=== PATIENT | female | born 2000 | race Caucasian/White ===

== ENCOUNTER 2023-04-02 01:27 | Emergency (ER) | payer SELFPAY ==
[2023-04-02 01:32] VITALS: BP 171/99; PULSE 106; RESP 18; TEMP 36; O2SAT 99
--- NOTE | 2023-04-02 01:54 | W.ED.GENAD ---
HPI General Mode of arrival: ambulatory. Date/Time Provider Initiated Documentation: 04/02/23 01:30. Limitations to Documentation: no limitations. Information obtained by: patient. HPI Narrative: 22yo female with hx PCOS presenting for left sided perineal pain x 2 weeks. Thinks she had an ingrown hair at the start of symptoms, since then has noted increased pain and a swollen area that is very tender. No drainage. No unusual vaginal discharge. No trauma or injury. She is otherwise in her usual state of health with no fevers, chills, rash, nausea, vomiting, abdominal pain, dysuria, hematuria, or other concerns. Related Data Home Medications Medication Instructions Recorded Confirmed bupropion HCl 150 mg 24 hr tablet, 150 mg PO QAM #30 tabs 11/16/22 04/02/23 extended release (Wellbutrin XL) buspirone 5 mg tablet 5 mg PO BID #60 tabs 11/16/22 04/02/23 clonidine HCl 0.1 mg tablet 0.1 mg PO QHS PRN anxiety, sleep 11/16/22 04/02/23 #30 tabs fluticasone propionate 50 2 spray intranasal DAILY #16 grams 11/16/22 04/02/23 mcg/actuation nasal spray,suspension (Flonase Allergy Relief) levocetirizine 5 mg tablet (Xyzal) 5 mg PO DAILY #90 tabs 11/16/22 04/02/23 Previous Rx's Medication Instructions Recorded bupropion HCl 150 mg 24 hr tablet, 150 mg PO QAM #30 tabs 11/16/22 extended release (Wellbutrin XL) buspirone 5 mg tablet 5 mg PO BID #60 tabs 11/16/22 clonidine HCl 0.1 mg tablet 0.1 mg PO QHS PRN anxiety, sleep 11/16/22 #30 tabs fluticasone propionate 50 2 spray intranasal DAILY #16 grams 11/16/22 mcg/actuation nasal spray,suspension (Flonase Allergy Relief) levocetirizine 5 mg tablet (Xyzal) 5 mg PO DAILY #90 tabs 11/16/22 Allergies Allergy/AdvReac Type Severity Reaction Status Date / Time niacin AdvReac Intermediate vomits Verified 04/02/23 01:36 trazodone AdvReac Intermediate nausea and Verified 04/02/23 01:36 dizziness enviromental Allergy Intermediate seasonal - Uncoded 04/02/23 01:36 hayfever General Stated 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 Head: Normocephalic, atraumatic Neck: Trachea midline, ?Neck supple. Cardiac: ?RRR, no murmurs appreciated Resp: No respiratory distress. CTAB. : ?Normal external genitalia. ~1.5cm spherical firm tender area on left perinum posterior to vulva and anterior to anus. Extremities: ?No deformities.? No peripheral edema. Neurologic: GCS 15. ? Moves all extremities freely against gravity Course Vital Signs Vital signs: Vital Signs Temperature 36.0 C L 04/02/23 01:32 Pulse 106 H 04/02/23 01:32 Respiratory Rate 18 04/02/23 01:32 Blood Pressure 171/99 H 04/02/23 01:32 Pulse Oximetry 99 04/02/23 01:32 Temperature 36.0 C L 04/02/23 01:32 Temperature Source Skin 04/02/23 01:32 Pulse 106 H 04/02/23 01:32 Respiratory Rate 18 04/02/23 01:32 Respiratory Effort Normal, Non-Labored 04/02/23 01:38 Blood Pressure 171/99 H 04/02/23 01:32 Blood Pressure Position Sitting 04/02/23 01:32 Pulse Oximetry 99 04/02/23 01:32 Oxygen Delivery Method Room Air 04/02/23 01:32 Oxygen Flow Rate 0 04/02/23 01:32 Pain Level 4 04/02/23 01:39 Procedures Abscess I/D Site: Other (perineal) Side (if applicable): Left Sedation/analgesia: None Local Anesthetic: Lidocaine 2% Amount of anesthesia used (mL): 1 Technique: Incised with #11 Blade Amount of fluid expressed (mL): 2 Irrigation: No Packing used?: None Medical Decision Making 22yo female with hx PCOS presenting for left sided perineal pain x 2 weeks. Thinks she had an ingrown hair at the start of symptoms, increasing pain and swelling since then. Systemically well. Not septic. Hypertensive on arrival. On exam she has an ~1.5cm abscess in the perineal region. Not Bartholin's cyst, not consistent with STI, not kori-anal. Confirmed small drainable fluid pocket present on bedside ultrasound. I&D with ~2cc purulent material expressed. Patient tolerated well. Advised to followup with her PCP regarding her blood pressure. Discharged home; discahrge instructions and return precautions were reviewed with patient who verbalized understanding. All questions were answered and she is in full agreement with the plan. Quality:SDOH Health Related Social Needs: No Data to Display PFSH All Active Problems (Updated 04/02/23 @ 02:19 by Hellen Berrios MD) Abscess (Acute) Right shoulder strain (Acute) Anxiety and depression (Chronic) Morbid obesity (Acute) PCOS (polycystic ovarian syndrome) (Acute) Nexplanon in place (Acute) Hypertriglyceridemia (Acute) Family History Mother Anxiety Asthma Father Diabetes Hypertension Heart failure Paternal Grandmother Cancer lung Social History Smoking/Tobacco Use Status: Current every day Tobacco Type: e-cigarettes Tobacco: How many years used: 5 Smokeless tobacco user: other Quit status: considering quitting Second Hand Exposure: Yes Smoking risk assessment performed?: Yes Alcohol Intake: former Substance use type: does not use Counseling given: No Adopted: No Caregiver/Support person: No Foster care: No Household members: spouse Housing: house Number of Children: 0 Communication Needs: Corrective Lenses Education Level: high school Do you need help understanding health information?: Never 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 [employer] Pets and animals: Yes Pets and animals: other Details: Bunny Sexually active: Yes Do you think of yourself as: straight/heterosexual Current gender identity: female What is your relationship status?: How often do you talk on the phone with friends or family?: three or more times per week How often do you get together with friends or relatives?: three or more times per week Do you belong to any clubs or organized social groups?: no Panel score (0-1 are the most socially isolated patients): 2 NHANES result reviewed/action taken: No What type of physical activity do you participate in: walking and other Details: Kayaghadaind Duration: 30-45 minutes/day Frequency: 1-2 times per week Special shravan needs: No Seatbelt use: always Helmet use: Yes Helmet use: sometimes Drive intox 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 w/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 Working smoke detector in home: Yes Fire extinguisher in home: Yes Carbon monox detector in home: Yes Do you feel safe at home: Yes Do you feel safe in your relationship?: Yes Discharge Plan Disposition Patient Disposition: Home Condition: Good Discharge Details Clinical Impression: Abscess Primary Care Provider: Tigist Vee ED Provider: Hellen Berrios Home Meds and New Rx's Prescriptions: Continued fluticasone propionate [Flonase Allergy Relief] 50 mcg/actuation spray,suspension 2 spray intranasal DAILY Qty: 16 12RF Rx Instructions: administer into each nostril levocetirizine [Xyzal] 5 mg tablet 5 mg PO DAILY Qty: 90 1RF bupropion HCl [Wellbutrin XL] 150 mg tablet extended release 24 hr 150 mg PO QAM Qty: 30 3RF buspirone 5 mg tablet 5 mg PO BID Qty: 60 3RF clonidine HCl 0.1 mg tablet 0.1 mg PO QHS PRN (Reason: anxiety, sleep) Qty: 30 3RF Discharge Instructions Instructions: Abscess (ED) Additional Instructions: You can take tylenol and ibuprofen over the counter as needed for discomfort; follow the directions on the bottle. If your symptoms return or worsen, please seek medical attention either at your primary care office or in the emergency department. Return to the emergency department for new or worsening symptoms including fever, severe pain, or if you have any other concerns. Referrals: Tigist Vee NP [Primary Care Provider] -
[2023-04-02] MEDS: Lidocaine 2% Multi-Dose 50 ML VIAL (02:15)
== END 2023-04-02 02:31 | disposition home or self-care (01) ==
PROVIDERS: Emergency Provider Student in an Organized Health Care Education/Training Program; PCP Nurse Practitioner
DX: L02.91 Cutaneous abscess, unspecified (principal)
CPT/HCPCS: 10060; J2003

== ENCOUNTER 2023-04-20 23:38 | Emergency (ER) | payer SELFPAY ==
[2023-04-20 23:48] VITALS: BP 178/112; PULSE 90; RESP 18; TEMP 36.1; O2SAT 100
[2023-04-20 23:54] VITALS: BP 178/112; PULSE 90; RESP 18; TEMP 36.1; O2SAT 100
--- NOTE | 2023-04-21 00:01 | W.ED.GENAD ---
HPI General Mode of arrival: ambulatory. Date/Time Provider Initiated Documentation: 04/21/23 00:01. Limitations to Documentation: no limitations. Information obtained by: patient. HPI Narrative: Time seen was 2354 in triage. Patient is a 22-year-old female who presents with 1 week of left ear pain. She has had a history of otitis media as a child and it was recommended that she got myringotomy tubes but never did. She has not had any episodes as an adult. She does not swim frequently and does not have a history of otitis externa. She denies any cold symptoms or URI symptoms. She is complaining of muffled hearing in the left ear. She tells me she has not had her wisdom teeth excised but was told she never developed. She took 800 mg of ibuprofen prior to arrival. She denies any fevers or chills. The pain is constant and radiates down her left jaw. She feels as though it is swollen. She denies any swelling of her throat lips or tongue. No change in the quality of her voice. She denies any other aggravating or alleviating factors. She denies any discharge from her ear. No fever or chills. No other symptoms. Related Data Home Medications Medication Instructions Recorded Confirmed bupropion HCl 150 mg 24 hr tablet, 150 mg PO QAM #30 tabs 11/16/22 04/20/23 extended release (Wellbutrin XL) buspirone 5 mg tablet 5 mg PO BID #60 tabs 11/16/22 04/20/23 clonidine HCl 0.1 mg tablet 0.1 mg PO QHS PRN anxiety, sleep 11/16/22 04/20/23 #30 tabs fluticasone propionate 50 2 spray intranasal DAILY #16 grams 11/16/22 04/20/23 mcg/actuation nasal spray,suspension (Flonase Allergy Relief) levocetirizine 5 mg tablet (Xyzal) 5 mg PO DAILY #90 tabs 11/16/22 04/20/23 amoxicillin 500 mg capsule 500 mg PO TID #20 caps 04/21/23 Previous Rx's Medication Instructions Recorded bupropion HCl 150 mg 24 hr tablet, 150 mg PO QAM #30 tabs 11/16/22 extended release (Wellbutrin XL) buspirone 5 mg tablet 5 mg PO BID #60 tabs 11/16/22 clonidine HCl 0.1 mg tablet 0.1 mg PO QHS PRN anxiety, sleep 11/16/22 #30 tabs fluticasone propionate 50 2 spray intranasal DAILY #16 grams 11/16/22 mcg/actuation nasal spray,suspension (Flonase Allergy Relief) levocetirizine 5 mg tablet (Xyzal) 5 mg PO DAILY #90 tabs 11/16/22 amoxicillin 500 mg capsule 500 mg PO TID #20 caps 04/21/23 Allergies Allergy/AdvReac Type Severity Reaction Status Date / Time niacin AdvReac Intermediate vomits Verified 04/20/23 23:53 trazodone AdvReac Intermediate nausea and Verified 04/20/23 23:53 dizziness enviromental Allergy Intermediate seasonal - Uncoded 04/20/23 23:53 hayfever General Stated Complaint: EarProblem DREW: 4 Review of Systems Narrative: see hpi Exam Const General: cooperative, healthy appearing, comfortable, no acute distress, well developed, well groomed and well hydrated Nutritional Appearance: average body habitus and well nourished Orientation: alert, awake and oriented x3 HENMT Head: normal to inspection, normocephalic, atraumatic and other (No visible swelling of the face or jaw) Ears: hearing grossly normal bilaterally, external ears normal, mastoids normal, no periauricular adenopathy, TM abnormal (There is a scar on the right TM, the left TM appears red and bulging ) bulging, wth effusion, erythematous, with fluid behind the TM, with loss of landmarks and other (2 small yellow blisters left TM); not perforated and other (L ear canal is erythematous & tender on exam. Both are narrow.) General nose exam: external nose normal, nares normal and no nasal discharge Face and sinus: normal facial exam, sinuses nontender and face symmetric Mouth: oral mucosae normal, lip normal, tongue normal, oropharynx normal, moist mucous membranes and other (Normal phonation. The patient is handling secretions.) Teeth and gingiva: dentition normal and gingiva normal Throat: posterior oropharynx normal and uvula midline Eyes General: appearance normal, both eyes and all related structures Eyelids: eyelids normal Conjunctivae: conjunctivae normal Sclera: sclerae normal Cornea: corneas normal Pupils: PERRL EOM: EOM intact bilaterally and No nystagmus Neck Neck: normal visual inspection, full ROM, no lymphadenopathy, no meningeal signs, trachea midline and supple Lymphatic: no lymphadenopathy noted Chest Chest: normal inspection of the chest Resp Effort & Inspection: normal respiratory effort, able to speak in complete sentences, no audible wheezes, no nasal flaring, no respiratory distress, no retractions, no stridor, not tachypneic, no tracheal deviation, no use of accessory muscles, No prolonged expiratory phase and other (Normal inspiratory to expiratory ratio.) Auscultation: clear to auscultation bilaterally, no rales, no rhonchi and no wheezes Cardio Jugular venous pressure: no JVD Palpation: normal PMI Rate: regular rate Rhythm: regular rhythm Heart Sounds: S1 normal, S2 normal, no gallops, no murmurs and no rubs Skin General skin exam: no rashes or lesions noted, turgor normal, no petechiae, no purpura and other (Skin is normal for ethnicity.) Lesions: no lesions Rashes: no rashes Trauma: no lacerations or abrasions Neuro General: patient alert, patient awake, patient oriented x3, moves all extremities, no meningeal signs, no focal motor deficits and CN's II-XI intact bilaterally Cranial Nerves: CN's II-XI intact bilaterally, PERRL, accommodation normal, EOM intact bilaterally, no nystagmus, facial strength normal, tongue midline, hearing normal and no nystagmus Cognition: normal cognition Speech: speech normal Gait: normal gait Motor: muscle tone normal throughout and strength 5/5 throughout Sensory Exam: no sensory deficits noted Extrem General: normal to inspection, full ROM and capillary refill normal Psych Appearance: grossly normal Affect: normal affect Attitude: cooperative Thought Process: normal Thought Content: normal Insight: insight good Judgment: judgment good Other: The patient appears to have capacity make medical decisions. Course Vital Signs Vital signs: Vital Signs Temperature 36.1 C L 04/20/23 23:48 Pulse 90 04/20/23 23:48 Respiratory Rate 18 04/20/23 23:48 Blood Pressure 178/112 H 04/20/23 23:48 Pulse Oximetry 100 04/20/23 23:48 Temperature 36.1 C L 04/20/23 23:54 Temperature Source Skin 04/20/23 23:54 Pulse 90 04/20/23 23:54 Respiratory Rate 18 04/20/23 23:54 Respiratory Effort Normal, Non-Labored 04/20/23 23:53 Blood Pressure 178/112 H 04/20/23 23:54 Blood Pressure Position Sitting 04/20/23 23:54 Pulse Oximetry 100 04/20/23 23:54 Oxygen Delivery Method Room Air 04/20/23 23:54 Oxygen Flow Rate 0 04/20/23 23:48 Pain Level 8 04/20/23 23:54 Medical Decision Making This is a 22-year-old female in good health who presents with 1 week history of left ear pain. She has a normal-appearing dental exam and the left TM is red and bulging but does not appear perforated. I do not think she has mastoiditis or dental infection. My plan is to discharge her with amoxicillin 500 mg every 8 hours for 7 days. I have advised her to take a probiotic while on amoxicillin. I will give her a home pack of hydrocodone. I have advised her not to drink alcohol, drive, make important decisions or operate heavy machinery while taking this medication. She is aware it is habit-forming and can cause drowsiness and constipation. I have advised her to take a probiotic. I will order viscous lidocaine and Cipro Floxin eardrops as well. I have advised her if she develops discharge from the ear she should not put any drops in the ear or submerging underwater. She voiced understanding and agreement with the discharge plan. Quality:SDOH Health Related Social Needs: No Data to Display PFSH All Active Problems Otitis externa (Acute) Otitis media (Acute) Abscess (Acute) Right shoulder strain (Acute) Anxiety and depression (Chronic) Morbid obesity (Acute) PCOS (polycystic ovarian syndrome) (Acute) Nexplanon in place (Acute) Hypertriglyceridemia (Acute) Family History Mother Anxiety Asthma Father Diabetes Hypertension Heart failure Paternal Grandmother Cancer lung Social History Smoking/Tobacco Use Status: Never Tobacco: How many years used: 5 Smokeless tobacco user: other Quit status: considering quitting Second Hand Exposure: Yes Smoking risk assessment performed?: Yes Alcohol Intake: former Substance use type: does not use Counseling given: No Adopted: No Caregiver/Support person: No Foster care: No Household members: spouse Housing: house Number of Children: 0 Communication Needs: Corrective Lenses Education Level: high school Do you need help understanding health information?: Never 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[employer] Pets and animals: Yes Pets and animals: other Details: Bunny Sexually active: Yes Do you think of yourself as: straight/heterosexual Current gender identity: female What is your relationship status?: How often do you talk on the phone with friends or family?: three or more times per week How often do you get together with friends or relatives?: three or more times per week Do you belong to any clubs or organized social groups?: no Panel score (0-1 are the most socially isolated patients): 2 NHANES result reviewed/action taken: No What type of physical activity do you participate in: walking and other Details: [place] Duration: 30-45 minutes/day Frequency: 1-2 times per week Special shravan needs: No Seatbelt use: always Helmet use: Yes Helmet use: sometimes 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 Working smoke detector in home: Yes Fire extinguisher in home: Yes Carbon monox detector in home: Yes Do you feel safe at home: Yes Do you feel safe in your relationship?: Yes Discharge Plan Disposition Patient Disposition: Home Condition: Improving Discharge Details Clinical Impression: Otitis media, Otitis externa Primary Care Provider: Tigist Vee ED Provider: Mayda Morales Home Meds and New Rx's Prescriptions: New amoxicillin 500 mg capsule 500 mg PO TID Qty: 20 0RF No Action fluticasone propionate [Flonase Allergy Relief] 50 mcg/actuation spray,suspension 2 spray intranasal DAILY Qty: 16 12RF Rx Instructions: administer into each nostril levocetirizine [Xyzal] 5 mg tablet 5 mg PO DAILY Qty: 90 1RF bupropion HCl [Wellbutrin XL] 150 mg tablet extended release 24 hr 150 mg PO QAM Qty: 30 3RF buspirone 5 mg tablet 5 mg PO BID Qty: 60 3RF clonidine HCl 0.1 mg tablet 0.1 mg PO QHS PRN (Reason: anxiety, sleep) Qty: 30 3RF Discharge Instructions Instructions: Otitis Externa (ED), Ear Infection (ED) Additional Instructions: 1. Start amoxicillin 500 mg every 8 hours for 7 days. Take a probiotic while on antibiotics. 2. Alternate 1000mg of acetaminophen (Tylenol) every 3 hours with 400-600mg of ibuprofen (Motrin/Advil) as needed for pain or fever. Do not take more than 4000mg in 24 hours. Do not take acetaminophen if you have a history of liver disease. Do not take ibuprofen if you have a history of gastrointestinal bleeding or a history of kidney disease. 3. Use the eardrops, 3 drops twice a day for 7 to 10 days. 4. Use the lidocaine drops as needed for pain. 5. Do not use any drops if you have discharge from the ear which could mean you have a perforated eardrum and should avoid getting any fluid in the ear if it is perforated. 6. Call your primary care provider in the morning for follow-up appointment and return here for any new or worrisome symptoms. Discharge Data Discharge Physician: Mayda Morales
[2023-04-21] MEDS: Acetaminophen 500 MG TAB 1000 MG PO (00:34)
[2023-04-21] MEDS: Amoxicillin 500 MG CAP PO (00:34)
== END 2023-04-21 00:36 | disposition home or self-care (01) ==
PROVIDERS: Emergency Provider Emergency Medicine Emergency Medical Services; PCP Nurse Practitioner
DX: H92.02 Otalgia, left ear (principal); H60.92 Unspecified otitis externa, left ear; H66.92 Otitis media, unspecified, left ear
CPT/HCPCS: 99283

== ENCOUNTER 2023-12-31 22:03 | Emergency (ER) | payer SELFPAY ==
[2023-12-31 22:04] VITALS: BP 151/107; PULSE 96; RESP 18; TEMP 36.1; O2SAT 98
--- NOTE | 2023-12-31 22:07 | W.ED.GENAD ---
Discharge Plan Disposition Patient Disposition: Home Condition: Good Discharge Details Clinical Impression: Dry socket Primary Care Provider: Tigist Vee ED Provider: Goran Talbot Home Meds and New Rx's Prescriptions: No Action No Known Home Meds Discharge Instructions Instructions: Dry Socket Additional Instructions: You were seen for dry socket with no evidence of infection. Socket was packed with iodoform soaked in lidocaine. This will likely fall out but for now we will provide relief. Use the syringe to help keep food particles out of the socket. Clove or clove oil will help for recurrent pain. Follow up with your dentist on Wednesday. Return to ED for fever, swelling, redness, other concerns. HPI General Mode of arrival: ambulatory. Date/Time Provider Initiated Documentation: 12/31/23 22:04. Limitations to Documentation: no limitations. Information obtained by: patient and RN notes reviewed. HPI Narrative: Patient had a left lower molar pulled on Wednesday. Everything seemed to be fine until last night she started to have some discomfort. Over the day it has become much worse. She has been trying to rinse her mouth and keep the socket clean. She thinks this clot has come out. She denies fever. She denies swelling. She called both the on-call primary care physician as well as the dental office. Ultimately referred here. Related Data Home Medications ?Medication ?Instructions ?Recorded ?Confirmed Unknown [No Known Home Meds] 12/31/23 12/31/23 Allergies Allergy/AdvReac Type Severity Reaction Status Date / Time niacin AdvReac Intermediate vomits Verified 12/31/23 22:07 trazodone AdvReac Intermediate nausea and Verified 12/31/23 22:07 dizziness enviromental Allergy Intermediate seasonal - Uncoded 12/31/23 22:07 hayfever General Stated Complaint: DentalOral DREW: 4 Review of Systems Narrative: Per HPI Exam Narrative Exam Narrative: Const: Obese female in NAD. VS per triage. HEENT: NC/AT. Normal facial exam. Left lower 1st molar socket is empty, no clot. There is no redness, swelling or drainage. No gingival abscess. Neck: Supple. Trachea midline. Lungs: Normal respiratory effort. Neuro: A+O x 3. Normal speech, mentation, gait. Cranial nerves II - XII grossly intact. No gross motor or sensory deficit. Course Vital Signs Vital signs: Vital Signs Temperature 97 F L 11/01/24 22:04 Pulse 96 H 12/31/23 22:04 Respiratory Rate 18 12/31/23 22:04 Blood Pressure 151/107 H 12/31/23 22:04 Pulse Oximetry 98 12/31/23 22:04 Temperature 97 F L 12/31/23 22:04 Temperature Source Temporal Artery Scan 12/31/23 22:04 Pulse 96 H 12/31/23 22:04 Respiratory Rate 18 12/31/23 22:04 Blood Pressure 151/107 H 12/31/23 22:04 Blood Pressure Position Sitting 12/31/23 22:04 Pulse Oximetry 98 12/31/23 22:04 Oxygen Delivery Method Room Air 12/31/23 22:04 Oxygen Flow Rate 0 12/31/23 22:04 Pain Level 8 12/31/23 22:04 Medical Decision Making Patient presenting to ED with pain from dry socket status post extraction on Wednesday. No evidence of infection. Unfortunately, we do not have dry socket paste noted we have eugenol. Socket irrigated out of food particles. It was then packed with iodoform packing soaked in 1% lidocaine plain. She will need to follow-up with her dentist on Wednesday. Return precautions provided. 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 Family History Mother Anxiety Asthma Father Diabetes Hypertension Heart failure Paternal Grandmother Cancer lung Social History Smoking/Tobacco Use Status: Never Tobacco: How many years used: 5 Smokeless tobacco user: other Quit status: considering quitting Second Hand Exposure: Yes Smoking risk assessment performed?: Yes Alcohol Intake: former Substance use type: former substance user Date of last use: 2019. 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 [employer] Pets and animals: Yes Pets and animals: other Details: [place] Sexually active: Yes Do you think of yourself as: straight/heterosexual Current gender identity: female What is your relationship status?: How often do you talk on the phone with friends or family?: three or more times per week How often do you get together with friends or relatives?: three or more times per week Do you belong to any clubs or organized social groups?: no Panel score (0-1 are the most socially isolated patients): 2 NHANES result reviewed/action taken: No What type of physical activity do you participate in: walking and other Details: Enriqueta Duration: 30-45 minutes/day Frequency: 1-2 times per week Special shravan needs: No Seatbelt use: always Helmet use: Yes Helmet use: sometimes Drive intox or ride w/intox drivers' cash clerk: No Working smoke detector in home: Yes Fire extinguisher in home: Yes Carbon monox detector in home: Yes Do you feel safe at home: Yes Do you feel safe in your relationship?: Yes
[2023-12-31] MEDS: Lidocaine 1% Pres-Free 5 ML VIAL IJ (22:32)
[2024-11-14 12:15] LABS: Chlamydia Result Negative (Negative); GC Result Negative (Negative)
== END 2023-12-31 22:49 | disposition home or self-care (01) ==
LOC: ER 22:52
PROVIDERS: Emergency Provider Emergency Medicine; PCP Nurse Practitioner
DX: R68.84 Jaw pain (principal); M27.3 Alveolitis of jaws
CPT/HCPCS: 99283; J2003

== ENCOUNTER 2024-04-03 01:35 | Observation (INO) | payer BC, SELFPAY ==
[2024-04-03] VITALS (116 sets, daily range): BP systolic 130–207; BP diastolic 62–143; PULSE 72–107; RESP 11–30; TEMP 36–36.7; O2SAT 92–100
--- NOTE | 2024-04-03 01:30 | RT.EKG_ITS ---
APPROVED REPORT Exam: Resting ECG Reason for Exam: SYNCOPE Patient Location: E HR:89 bpm ECG Measurements Heart Rate [address] 161 P 56 QRSd 102 QRS 79 QT 377 T 25 QTc 460 Conclusion Sinus rhythm...normal P axis, V-rate 60- [address] segment or T wave abnormalities to suggest occlusive AL
--- NOTE | 2024-04-03 02:00 | DI.RAD_ITS ---
Exam(s) XR CHEST 2V PA LATERAL EXAM: XR CHEST 2V PA LATERAL CLINICAL HISTORY: chest pain TECHNIQUE: 2D digital imaging was performed. Two views. COMPARISON: No exams were available for comparison FINDINGS: HEART: Normal size. Aorta: Not dilated. PULMONARY VASCULATURE: Normal. MEDIASTINUM: Unremarkable. LUNGS: Clear. PLEURAL SPACE: No pleural effusion or pneumothorax. BONE:Unremarkable for age. SOFT TISSUES: Unremarkable. IMPRESSION: No acute abnormality. DATA REPOSITORY: RADIATION DOSE DELIVERED:
[2024-04-03 02:20] LABS: BE (Venous) 3 mmol/L (-2-3); HCO3 (Venous) 28 mmol/L (23-28); O2 Sat (Venous) 73 %; TCO2 (Venous) 26 mmol/L (24-29); pCO2 (Venous) 50 mmHg (41-51); pH (Venous) 7.36 (7.31-7.41); pO2 (Venous) 40 mmHg
[2024-04-03 02:21] LABS: Abs Immature Grans 0.07 10^3/uL (0.0-0.06); Absolute Basophil Count 0.06 10^3/uL (0.0-0.2); Absolute Eosinophil Count 0.17 10^3/uL (0.0-0.7); Absolute Monocyte Count 0.71 10^3/uL (0.1-0.8); Absolute Neutrophil Count 5.55 10^3/uL (1.2-6.7); Basophils % 0.6 %; Eosinophils % 1.8 %; HCT 39.2 % (36.0-46.0); HGB 13.3 g/dL (11.2-15.7); Immature Grans % 0.7 %; Lymphocytes % 31.4 %; MCH 29.3 pg (27.0-33.0); MCHC 33.9 % (32.0-36.0); MCV 86 fL (80-95); MPV 9.3 fL (8.0-11.0); Monocytes % 7.4 %; Neutrophils % 58.1 %; Platelet Count 324 10^3/uL (130-400); RBC 4.54 10^6/uL (3.93-5.22); RDW 12.7 % (11.7-14.6); RDW-SD 39.8 fL; WBC 9.56 10^3/uL (4.4-10.8)
[2024-04-03] MEDS: LORazepam 1 MG TAB PO (02:25)
--- NOTE | 2024-04-03 02:33 | W.ED.GENAD ---
Discharge Plan Disposition Patient Disposition: Admit to [facility] Condition: Stable Discharge Details Clinical Impression: Loss of consciousness, Hypertension, Chest pain Admit Date/Time: 04/03/24 04:21 Admit Provider: Mikie Penny Attending Provider: Mikie Penny Primary Care Provider: Tigist Vee ED Provider: Hellen Berrios Discharge Data Discharge Date/Time-TO BE ENTERED AT DEPARTURE: 04/03/24 04:23 HPI General Mode of arrival: ambulatory. Date/Time Provider Initiated Documentation: 04/03/24 01:36. Limitations to Documentation: no limitations. Information obtained by: patient. HPI Narrative: 23yo F with hx of anxiety, obesity, HLD, presenting for syncopal event. This evening shortly after midnight she came to on the floor between her kitchen and living room; does not remember what happened or how she got there. The last thing she recalls is getting up to the bathroom and checking her blood pressure (SBP ~200) around 1130. She does remember anything in between these two events. When she regained consciousness she felt normal aside from not being able to remember what happened. Has never had anything similar happen before. No headache, neck pain, nausea, vomiting, numbness, weakness, or urinary incontinence. She had intermittent dull chest pain and shortness of breath that has been coming and going for several weeks; is currently present. Pain is substernal, nonradiating, with no alleviating or aggravating factors. She also feels a little lightheaded currently. Has also felt occasional 'fluttering' in her chest for the past couple weeks. Reports that she was on cholesterol medicaton from ages [age] but not currently. Father had his first heart attack at age 30, subsequently had a another heart attack and now his severe heart failure at age 52. No family history of seizures. No family history of congenital heart disease or sudden unexpected at a young age. Smokes marrijunna rarely, denies any other recreational drug use. Otherwise in her usual state of health [facility] no fevers, chills, rash, abdominal pain, extremity pain, or other concerns. Related Data Home Medications ?Medication ?Instructions ?Recorded ?Confirmed clonidine HCl 0.1 mg tablet 0.1 mg PO DAILY PRN 04/03/24 04/03/24 Allergies Allergy/AdvReac Type Severity Reaction Status Date / Time niacin AdvReac Intermediate vomits Verified 04/03/24 01:43 trazodone AdvReac Intermediate nausea and Verified 04/03/24 01:43 dizziness enviromental Allergy Intermediate seasonal - Uncoded 04/03/24 01:43 hayfever General Stated Complaint: Dizzy/Sync DREW: 3 Review of Systems Narrative: see HPI Exam Narrative Exam Narrative: GENERAL: Alert, anxious. SKIN: Warm and well perfused. HEAD: Atraumatic, normocephalic without edema, discoloration or evidence of trauma. Facial bones without deformities or tenderness. EYES: PERRL. No scleral icterus or conjunctival injection. Extraocular muscles intact without nystagmus or diplopia. EARS:No hemotympanum. MOUTH: No malocclusion or trismus. Moist mucus membranes without blood. NECK: Trachea midline. No discolorations or edema. Full pain free ROM with flexion, extension, and lateral rotation. CV: Regular rate and rhythm, Normal s1 and s2. No murmurs, rubs, or gallops. PV: Radial pulses 2+ bilaterally and symmetric. 2+ capillary refill. No extremity edema. CHEST: Chest symmetric with respirations. Mild anterior left chest wall tenderness. Lungs are clear to auscultation bilaterally. ABDOMEN: Soft, nondistended, nontender. BACK: No abrasions, skin openings, or ecchymosis. Spine without bony tenderness, no step offs. PELVIC: Pelvis stable, nontender to lateral compression MSK: No gross deformities . Tolerates full range of motion of extremities without tenderness. NEURO: ? GCS 15.? PERRL.? EOMI.? Fluent speech, no dysarthria. Motor- 5/5 strength symmetric bilateral upper and lower extremities Sensation- ?Intact to light touch and symmetric multiple dermatomes including upper and lower extremities Coordination- No dysmetria on finger to nose Gait/station: ?Normal stance.? No truncal ataxia. Steady gait with equal normal steps CRANIAL NERVES: II: Pupils equal and reactive, III, IV, : EOM intact, no gaze preference or deviation, no nystagmus. V: normal sensation in V1, V2, and V3 segments bilaterally VII: no asymmetry, no nasolabial fold flattening VIII: normal hearing to speech IX, X: normal palatal elevation, no uvular deviation XI: 5/5 head turn and 5/5 shoulder shrug bilaterally XII: midline tongue protrusion Course Vital Signs Vital signs: Vital Signs Temperature 36.2 C L 04/03/24 01:38 Pulse 103 H 04/03/24 01:38 Respiratory Rate 18 04/03/24 01:38 Blood Pressure 207/131 H 04/03/24 01:38 Pulse Oximetry 100 04/03/24 01:38 Temperature 36.2 C L 04/03/24 01:38 Temperature Source Temporal Artery Scan 04/03/24 01:38 Pulse 103 H 04/03/24 01:38 Respiratory Rate 18 04/03/24 01:44 Respiratory Effort Normal, Non-Labored 04/03/24 01:44 Respiratory Depth Normal 04/03/24 01:44 Respiratory Pattern Normal 04/03/24 01:44 Blood Pressure 207/131 H 04/03/24 01:38 Blood Pressure Position Sitting 04/03/24 01:38 Pulse Oximetry 100 04/03/24 01:38 Oxygen Delivery Method Room Air 04/03/24 01:38 Oxygen Flow Rate 0 04/03/24 01:38 Pain Level 6 04/03/24 01:38 Lab/Test Results Lab/Test Results: Laboratory Tests Range/Units 04/03/24 01:58 WBC (4.4-10.8) 10^3/uL 9.56 RBC (3.93-5.22) 10^6/uL 4.54 Hgb (11.2-15.7) g/dL 13.3 Hct (36.0-46.0) % 39.2 MCV (80-95) fL 86 MCH (27.0-33.0) pg 29.3 MCHC (32.0-36.0) % 33.9 RDW (11.7-14.6) % 12.7 Plt Count (130-400) 10^3/uL 324 MPV (8.0-11.0) fL 9.3 Immature Gran % % 0.7 Neutrophils % % 58.1 Lymphocytes % % 31.4 Monocytes % % 7.4 Eosinophils % % 1.8 Basophils % % 0.6 Nucleated RBC % (0.0-0.3) % 0.0 Absolute Neutrophils (1.2-6.7) 10^3/uL 5.55 Absolute Lymphocytes (1.2-3.4) 10^3/uL 3.00 Absolute Monocytes (0.1-0.8) 10^3/uL 0.71 Absolute Eosinophils (0.0-0.7) 10^3/uL 0.17 Absolute Basophils (0.0-0.2) 10^3/uL 0.06 VBG pH (7.31-7.41) 7.36 VBG pCO2 (41-51) mmHg 50 VBG pO2 mmHg 40 VBG HCO3 (23-28) mmol/L 28 VBG Total CO2 (24-29) mmol/L 26 VBG O2 Saturation % 73 VBG Base Excess (-2-3) mmol/L 3 Medical Decision Making 23yo F with hx of anxiety, obesity, HLD, presenting for syncopal event, chest pain, and hypertension. Does not recall what happened, just waking up on the floor. Significant cardiac risk factors including father with CA at age 30, BMI 48, and reported HLD. Hypertensive on arrival 200's/130's and borderline tachycardia. No significant traumatic findings on exam, lungs CTAB, appears well perfused, overall well appearing albeit anxious. Takes clonidine at home occasionally for anxiety; will give 1mg PO ativan here and see if this improves BP while awaiting results of workup. Most concerned for cardiogenic syncope; seizure less likely. Nexus head and c-spine negative; would not get CT imaging. -EKG SR, appropriate intervals, no ST segment or T wave abnormalities to suggest occlusive CA. -CXR independently reviewed; no focal pneumonia or pneumothorax on my view, agree with radiology read below. -Labs reviewed as below, CBC reassuring with no leukocytosis or anemia, CMP with no actionable abnormalities, Mg slightly low at 1.6 (oral replacement ordered), VBG reassuring, initial troponin <4 with one hour repeat of 5, BNP not suggestive of heart failure, dimer negative (would not further pursue PE or dissection with CT imaging), negative. On reassessment BP improved to 150's/70's. Continues to report intermittent dull chest pain. No significant events on telemetry. Given unclear etiology of syncopal event and her underlying personal and family risk factors, warrants observation stay on telemetry for further workup. Discussed with [facility] hospitalist Dr. Penny; pt accepted to medicine service. Awaiting admission orders and transfer to the floor when bed available. Imaging Data Radiologic Study: Imaging: X-Ray Radiologist's impression: IMPRESSION: No acute findings Lab Data Lab results reviewed: Yes I reviewed the patient's lab results. Labs: Laboratory Tests Range/Units 04/03/24 04/03/24 01:58 03:05 WBC (4.4-10.8) 10^3/uL 9.56 RBC (3.93-5.22) 10^6/uL 4.54 Hgb (11.2-15.7) g/dL 13.3 Hct (36.0-46.0) % 39.2 MCV (80-95) fL 86 MCH (27.0-33.0) pg 29.3 MCHC (32.0-36.0) % 33.9 RDW (11.7-14.6) % 12.7 Plt Count (130-400) 10^3/uL 324 MPV (8.0-11.0) fL 9.3 Immature Gran % % 0.7 Neutrophils % % 58.1 Lymphocytes % % 31.4 Monocytes % % 7.4 Eosinophils % % 1.8 Basophils % % 0.6 Nucleated RBC % (0.0-0.3) % 0.0 Absolute Neutrophils (1.2-6.7) 10^3/uL 5.55 Absolute Lymphocytes (1.2-3.4) 10^3/uL 3.00 Absolute Monocytes (0.1-0.8) 10^3/uL 0.71 Absolute Eosinophils (0.0-0.7) 10^3/uL 0.17 Absolute Basophils (0.0-0.2) 10^3/uL 0.06 D-Dimer (<500) ng/mlFEU 133 VBG pH (7.31-7.41) 7.36 VBG pCO2 (41-51) mmHg 50 VBG pO2 mmHg 40 VBG HCO3 (23-28) mmol/L 28 VBG Total CO2 (24-29) mmol/L 26 VBG O2 Saturation % 73 VBG Base Excess (-2-3) mmol/L 3 Sodium (136-145) mmol/L 140 Potassium (3.5-5.1) mmol/L 3.8 Chloride (98-107) mmol/L 101 Carbon Dioxide (21.0-32.0) mmol/L 30.3 Anion Gap (3-11) mmol/L 8.7 BUN (7-18) mg/dL 12 Creatinine (0.55-1.02) mg/dL 0.8 Est GFR (CKD-EPI 2020) (mL/min/1.73m2) 104.80 Glucose (74-106) mg/dL 136 H Calcium (8.5-10.1) mg/dL 9.1 Magnesium (1.8-2.4) mg/dL 1.6 L Total Bilirubin (0.2-1.0) mg/dL 0.51 AST (15-37) U/L 22 ALT (14-59) U/L 51 Alkaline Phosphatase (46-116) U/L 69 Troponin I (<or=51) ng/L < 4 5 NT-Pro-B Natriuret Pep (<300) pg/mL 51 Total Protein (6.4-8.2) g/dL 7.8 Albumin (3.4-5.0) g/dL 4.3 Serum HCG, Qual Negative Quality:SDOH Health Related Social Needs: No Data to Display PFSH All Active Problems (Updated 04/03/24 @ 04:22 by ALBAN BRAMBILA) Syncope and collapse (Acute) Chest pain (Acute) Hypertension (Chronic) Loss of consciousness (Acute) Medical History Anxiety and depression Morbid obesity Hypertriglyceridemia PCOS (polycystic ovarian syndrome) 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 Family History Mother Anxiety Asthma Father Diabetes Hypertension Heart failure Paternal Grandmother Cancer lung Social History Smoking/Tobacco Use Status: Never Tobacco: How many years used: 5 Smokeless tobacco user: other Quit status: considering quitting Second Hand Exposure: Yes Smoking risk assessment performed?: Yes Alcohol Intake: former Substance use type: former substance user Date of last use: 2019. 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[employer] Pets and animals: Yes Pets and animals: other Details: [place] Sexually active: Yes Do you think of yourself as: straight/heterosexual Current gender identity: female What is your relationship status?: How often do you talk on the phone with friends or family?: three or more times per week How often do you get together with friends or relatives?: three or more times per week Do you belong to any clubs or organized social groups?: no Panel score (0-1 are the most socially isolated patients): 2 NHANES result reviewed/action taken: No What type of physical activity do you participate in: walking and other Details: [place] Duration: 30-45 minutes/day Frequency: 1-2 times per week Special shravan needs: No Seatbelt use: always Helmet use: Yes Helmet use: sometimes Drive intox or ride w/intox dump truck driver: No Working smoke detector in home: Yes Fire extinguisher in home: Yes Carbon monox detector in home: Yes Do you feel safe at home: Yes Do you feel safe in your relationship?: Yes
[2024-04-03 02:36] LABS: HCG Qual (Serum) Negative
[2024-04-03 02:49] LABS: Albumin 4.3 g/dL (3.4-5.0); Alkaline Phosphatase 69 U/L (46-116); Anion Gap 8.7 mmol/L (3-11); BUN 12 mg/dL (7-18); Bilirubin, Total 0.51 mg/dL (0.2-1.0); CO2 30.3 mmol/L (21.0-32.0); CREATININE 0.8 mg/dL (0.55-1.02); Calcium 9.1 mg/dL (8.5-10.1); Chloride 101 mmol/L (98-107); Glucose 136 mg/dL (74-106); Magnesium 1.6 mg/dL (1.8-2.4); NT-proBNP 51 pg/mL (<300); Potassium 3.8 mmol/L (3.5-5.1); Sodium 140 mmol/L (136-145); Total Protein 7.8 g/dL (6.4-8.2)
[2024-04-03 02:55] LABS: D-Dimer 133 ng/mlFEU (<500)
--- NOTE | 2024-04-03 03:00 | DI.VRAD_ITS ---
PROCEDURE INFORMATION: Exam: XR Chest Exam date and time: 04/03/2024 2:44 AM Age: 23 years old Clinical indication: Other: Chest pain TECHNIQUE: Imaging protocol: Radiologic exam of the chest. Views: 2 views. COMPARISON: No relevant prior studies available. FINDINGS: Lungs: Unremarkable. No consolidation. Pleural spaces: Unremarkable. No pleural effusion. No pneumothorax. Heart/Mediastinum: Unremarkable. No cardiomegaly. Bones/joints: Unremarkable. IMPRESSION: No acute findings. Dictated and Authenticated by: Ghulam Lugo MD. Orderin Agustina Macedo MD
[2024-04-03 03:01] LABS: Troponin I < 4 ng/L (<or=51)
[2024-04-03 03:02] LABS: ALT 51 U/L (14-59); AST 22 U/L (15-37)
[2024-04-03 03:25] LABS: Troponin I 5 ng/L (<or=51)
[2024-04-03] MEDS: Magnesium Gluconate 500 MG TAB 1000 MG PO (03:47)
--- NOTE | 2024-04-03 03:59 | HPE_ITS ---
Date of service: 04/03/24 Time of Service: 03:59 Assessment and Plan Assessment and plan (1) Syncope and collapse: Start date: 04/03/24 Status: Acute Assessment and plan: This is a 23-year-old lady who recently had upper respiratory symptoms with negative viral screening, taking NyQuil which she usually does take for cold but having high blood pressure measurements at home and recent symptoms of retrosternal chest pressure or pain which was not associate with any activity and had a syncopal episode at home after attempting to sleep and after having gone to the bathroom just prior to her episode. She did not feel dizzy after urinating. She is on no medical therapy that he has been on statins in the past. She does have a strong family history of heart disease with her father having a heart attack in his 30s. She had no known injury with her fall and imaging was negative for intracranial and cervical injury. She had no signs or symptoms of this being a seizure. She has had no history of seizures. She has used polysubstance does have a history of vaping and polysubstance abuse in the past but of illicit drugs for at least 4 years. She does live with her . Because of her unknown cause of syncope, she will be observed with further evaluation of her heart with echocardiogram and trending troponins as well as monitoring her heart rhythm. If all of these are unrevealing, she could be discharged for further evaluation of her cardiac status with cardiac stress testing and will be initiated on treatment of her hypertension as well as loaded with aspirin and given Lipitor high-dose until further evaluation. Fasting lipids will be performed. Patient is a full code. (2) Atypical chest pain: Start date: 04/03/24 Status: Acute Assessment and plan: Patient is initiated on loading dose of aspirin with daily baby aspirin, we will trend troponins which have been negative and cardiac monitoring with Zio patch at discharge. Long-term she needs further cardiology evaluation including exercise stress test with family history of early heart disease. She was initiated on metoprolol for her blood pressure and elevation of heart rate as well as high-dose statin until further evaluation. Fasting lipids as mentioned. (3) Hypomagnesemia: Start date: 04/03/24 Status: Acute Assessment and plan: IV repletion and monitor closely. Patient may want to take oral magnesium at home. (4) Hypertension: Status: Chronic Assessment and plan: Initiate metoprolol and titrate to blood pressure. Caution with patient's syncopal episode being unknown as to cause with further cardiac evaluation before discharge on metoprolol. (5) Morbid obesity: Assessment and plan: Weight loss was advised. Prognosis poor for change with patient having chronic obesity. (6) Substance abuse: Assessment and plan: Urine drug screen but the patient denied recent illicit use and off Suboxone. If positive this may be contributing to her presenting symptoms. History of Present Illness History of Present Illness Chief Complaint: Syncopal episode at home unwitnessed and without injury. Narrative: This is a 23-year-old female patient who has been on simvastatin in the past for hyperlipidemia when she was in her early teens who recently has been having some mild chest discomfort retrosternally not necessarily associate with exertion and not radiating. She was checking her blood pressure because of her chest discomfort and noted that it was elevated the day of presentation. Just before midnight the day of presentation the patient went to the bathroom and felt funny checking her blood pressure again in bed and this was high. She told her that she needed to be checked out at the ED and he remained asleep. She did attempt to get up and awakened on her living room floor without memory of falling or having a syncopal episode. She had no incontinence of urine or stool and did not bite her tongue. She was fully aware of her surroundings when she awakened. She drove herself to the ED for evaluation and was found to be hypertensive which did wax and wane without treatment initially. D-dimer was negative and CTA of the chest was not performed with patient not being hypoxic and having no history of thromboembolic events or peripheral edema. She is morbidly obese. She remains hypertensive with heart rate above 80 but not tachycardic. She is not having chest discomfort and CT of the head and neck revealed no injuries. Chest x-ray was also clear. Because of her family history would be a very strong of heart attacks at a early age with her father had a heart attack at the age of 30 and now with severe ischemic cardiomyopathy, she was evaluated with serial troponins which thus far have been negative and observation of her heart rhythm with her recent symptoms of atypical chest pain and possible dysrhythmia. Her TSH was normal. She did previously have polysubstance abuse but has been clean for 4 years having been in [facility] for drug charges and Suboxone up to the spring 2019. Urine drug screen was ordered but pending. She did not have any viral screening with RSV, flu and COVID being negative but she has had mild cough and upper respiratory symptoms recently. She did take DayQuil and NyQuil which she usually does for cold symptoms. Patient will be observed with echocardiogram to be performed in the morning and follow-up on troponins with cardiac monitoring. If imaging and testing is unrevealing, she should have a Zio patch at discharge and follow-up with her PCP with consideration of further cardiac evaluation and cardiac stress testing. Because her blood pressure remains elevated she will be initiated on metoprolol will be observed 25 mg every 6 hours, loaded with aspirin and given baby aspirin daily along with Lipitor 80 mg been initiated. She is a full code. Review of Systems Narrative: 13 point review of systems otherwise unrevealing or stable. Patient has had no peripheral edema or weight gain being morbidly obese. She does remain active. Patient does vape tobacco. PFSH All Active Problems (Updated 04/03/24 @ 06:28 by Mikie Penny) Atypical chest pain (Acute) Hypomagnesemia (Acute) Syncope and collapse (Acute) Chest pain (Acute) Hypertension (Chronic) Loss of consciousness (Acute) Medical History Anxiety and depression Morbid obesity Hypertriglyceridemia PCOS (polycystic ovarian syndrome) 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 Family History Mother Anxiety Asthma Father Diabetes Hypertension Heart failure Paternal Grandmother Cancer lung Social History (Updated 04/03/24 @ 06:41 by Mikie Penny) Smoking/Tobacco Use Status: Current every day Tobacco Type: e-cigarettes Tobacco: How many years used: 5 Smokeless tobacco user: other Quit status: considering quitting Second Hand Exposure: Yes Smoking risk assessment performed?: Yes Alcohol Intake: former Substance use type: former substance user Date of last use: 2019. 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: three or more times per week Do you belong to any clubs or organized social groups?: no Panel score (0-1 are the most socially isolated patients): 2 NHANES result reviewed/action taken: No What type of physical activity do you participate in: walking and other Details: [place] Duration: 30-45 minutes/day Frequency: 1-2 times per week Special shravan needs: No Seatbelt use: always Helmet use: Yes Helmet use: sometimes Drive intox or ride w/intox 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 Working smoke detector in home: Yes Fire extinguisher in home: Yes Carbon monox detector in home: Yes Do you feel safe at home: Yes Do you feel safe in your relationship?: Yes Meds Allergies and Home Medications Allergies Allergy/AdvReac Type Severity Reaction Status Date / Time niacin AdvReac Intermediate vomits Verified 04/03/24 01:43 trazodone AdvReac Intermediate nausea and Verified 04/03/24 01:43 dizziness enviromental Allergy Intermediate seasonal - Uncoded 04/03/24 01:43 hayfever Home Medications ?Medication ?Instructions ?Recorded ?Confirmed ?Type clonidine HCl 0.1 mg tablet 0.1 mg PO DAILY PRN 04/03/24 04/03/24 History Exam Narrative Exam Narrative: General: Patient appears appropriate age, morbidly obese, alert and oriented x 3 and in no acute distress. HEENT: Normocephalic, eyes with pupils equal and react to light symmetrically, extraocular movement intact and sclera anicteric. Oropharynx with moist mucosa. Fair dentition. Neck: Supple without JVD. Back: Normal posture, no CVA tenderness. Lungs: Bronchovesicular breath sounds diffusely with no focalizing rales or rhonchi. Fair aeration. No expiratory wheeze. Normal inspiratory to expiratory phase ratio. Breast: Exam deferred. Abdomen: Obese contour, soft and nontender to palpation with no palpable hepatosplenomegaly. No guarding or rebound. Bowel sounds positive in all quadrants. Genitalia/rectal: Exam deferred. Extremities without clubbing, cyanosis or pitting edema. Extremities are obese with some nonpitting edema present. Negative Homans' sign bilaterally. Normal peripheral pulses. Skin: Normal color, warm and dry. Neuro: Cranial nerves II through XII gross intact, no focalized motor deficits. No tremor. DTRs physiologic and symmetrical. Psych: Normal mood and affect. No abnormal thought processes. Remote and recent memory intact. Results Imaging Imaging Studies: Exam: CT Head Without Contrast Exam date and time: 04/03/2024 4:29 AM Age: 23 years old Clinical indication: Syncope and collapse; Other: Syncope, hypertension; Prior surgery; Surgery date: 6+ months; Surgery type: Tonsillectomy COMPARISON: No relevant prior studies available. FINDINGS: Brain: No brain edema. No intracranial hemorrhage. Cerebral ventricles: No ventriculomegaly. Paranasal sinuses: See Bones finding. Mastoid air cells: Unremarkable. Bones: Right ethmoid and right maxillary sinusitis Impression. Soft tissues: Unremarkable. IMPRESSION: No acute brain findings. PROCEDURE INFORMATION: Exam: CT Cervical Spine Without Contrast Exam date and time: 04/03/2024 4:29 AM Age: 23 years old Clinical indication: Syncope and collapse; Other: Syncope, hypertension; Prior surgery; Surgery date: 6+ months; Surgery type: Tonsillectomy COMPARISON: CR XR CHEST 2V PA LATERAL 04/03/2024 2:44 AM FINDINGS: Bones: No acute fracture. Normal alignment. No significant disc bulge or herniation. No severe spinal canal stenosis. No significant neural foraminal narrowing. Lungs: Lung apices are normal. Soft tissues: Unremarkable. IMPRESSION: No acute findings. Exam: XR Chest Exam date and time: 04/03/2024 2:44 AM Age: 23 years old Clinical indication: Other: Chest pain TECHNIQUE: Imaging protocol: Radiologic exam of the chest. Views: 2 views. COMPARISON: No relevant prior studies available. FINDINGS: Lungs: Unremarkable. No consolidation. Pleural spaces: Unremarkable. No pleural effusion. No pneumothorax. Heart/Mediastinum: Unremarkable. No cardiomegaly. Bones/joints: Unremarkable. IMPRESSION: No acute findings. Labs 04/03/24 06:08 04/03/24 01:58 Labs: Laboratory Results - last 24 hr 04/03/24 04/03/24 01:58 03:05 WBC 9.56 RBC 4.54 Hgb 13.3 Hct 39.2 MCV 86 MCH 29.3 MCHC 33.9 RDW 12.7 Plt Count 324 MPV 9.3 Immature Gran % 0.7 Neutrophils % 58.1 Lymphocytes % 31.4 Monocytes % 7.4 Eosinophils % 1.8 Basophils % 0.6 Nucleated RBC % 0.0 Absolute Neutrophils 5.55 Absolute Lymphocytes 3.00 Absolute Monocytes 0.71 Absolute Eosinophils 0.17 Absolute Basophils 0.06 D-Dimer 133 VBG pH 7.36 VBG pCO2 50 VBG pO2 40 VBG HCO3 28 VBG Total CO2 26 VBG O2 Saturation 73 VBG Base Excess 3 Sodium 140 Potassium 3.8 Chloride 101 Carbon Dioxide 30.3 Anion Gap 8.7 BUN 12 Creatinine 0.8 Est GFR (CKD-EPI 2020) 104.80 Glucose 136 H Calcium 9.1 Magnesium 1.6 L Total Bilirubin 0.51 AST 22 ALT 51 Alkaline Phosphatase 69 Troponin I < 4 5 NT-Pro-B Natriuret Pep 51 Total Protein 7.8 Albumin 4.3 Serum HCG, Qual Negative Last Vital Signs Temp 36.2 C L 04/03/24 01:38 Pulse 95 H 04/03/24 03:45 Resp 18 04/03/24 03:45 BP 148/88 H 04/03/24 03:30 Pulse Ox 97 04/03/24 03:45 Time Spent Time spent with Patient: >75 minutes Time was spent: preparing to see the patient(eg.review tests), obtaining and/or reviewing separately otained hiistory, ordering medications,tests, procedures, indepentently interpreting results, counseling the patient and care coordination
--- NOTE | 2024-04-03 04:00 | DI.CT_ITS ---
Exam(s) CT HEAD NECK WO EXAM: CT HEAD NECK WO CLINICAL HISTORY: Syncope, hypertension. TECHNIQUE: Imaging Protocol: Axial computed tomography images with coronal and sagittal reformatted images were created and reviewed COMPARISON: No exams were available for comparison FINDINGS: CT Head: Ventricles and Extra axial spaces: Normal in size and morphology for the patient's age. Hemorrhage: None. Cerebral parenchyma: Unremarkable for age. Midline shift: None. Brainstem/Cerebellum: For age. Calvarium: Normal. Visualized Paranasal sinuses/Mastoids: Opacification of several ethmoid sinuses as well as right maxi llary sinus. Soft Tissues: Unremarkable. CT Cervical Spine: Bones: No acute fracture or subluxation. Soft Tissues: Unremarkable. Lung Apices: Clear. IMPRESSION: 1. No acute intracranial process. 2. No acute fracture or subluxation in the cervical spine. RADIATION DOSE DELIVERED: 1,283.14mGy.cm Total DLP DATA REPOSITORY: All CT scans at this facility are submitted to the National Radiology Data Registry (NRDR) Dose Index Registry (DIR) with the [employer] ([employer]). RADIATION OPTIMIZATION: All CT scans at this facility use at least one of these dose optimization te chniques: automated exposure control; mA and/or kV adjustment per patient size (includes targeted exa ms where dose is matched to clinical indication); or iterative reconstruction.
[2024-04-03] MEDS: MAGNESIUM SULFATE 2 GM/50 ML BAG IV_INF (04:51)
[2024-04-03] MEDS: Heparin 5,000 UNITS/ML VIAL 5000 UNITS SC ×3 (04:51→20:10)
--- NOTE | 2024-04-03 04:51 | DI.VRAD_ITS ---
PROCEDURE INFORMATION: Exam: CT Head Without Contrast Exam date and time: 04/03/2024 4:29 AM Age: 23 years old Clinical indication: Syncope and collapse; Other: Syncope, hypertension; Prior surgery; Surgery date: 6+ months; Surgery type: Tonsillectomy TECHNIQUE: Imaging protocol: Computed tomography of the head without contrast. Radiation optimization: All CT scans at this facility use at least one of these dose optimization techniques: automated exposure control; mA and/or kV adjustment per patient size (includes targeted exams where dose is matched to clinical indication); or iterative reconstruction. COMPARISON: No relevant prior studies available. FINDINGS: Brain: No brain edema. No intracranial hemorrhage. Cerebral ventricles: No ventriculomegaly. Paranasal sinuses: See Bones finding. Mastoid air cells: Unremarkable. Bones: Right ethmoid and right maxillary sinusitis Impression. Soft tissues: Unremarkable. IMPRESSION: No acute brain findings. PROCEDURE INFORMATION: Exam: CT Cervical Spine Without Contrast Exam date and time: 04/03/2024 4:29 AM Age: 23 years old Clinical indication: Syncope and collapse; Other: Syncope, hypertension; Prior surgery; Surgery date: 6+ months; Surgery type: Tonsillectomy TECHNIQUE: Imaging protocol: Computed tomography of the cervical spine without contrast. Radiation optimization: All CT scans at this facility use at least one of these dose optimization techniques: automated exposure control; mA and/or kV adjustment per patient size (includes targeted exams where dose is matched to clinical indication); or iterative reconstruction. COMPARISON: CR XR CHEST 2V PA LATERAL 04/03/2024 2:44 AM FINDINGS: Bones: No acute fracture. Normal alignment. No significant disc bulge or herniation. No severe spinal canal stenosis. No significant neural foraminal narrowing. Lungs: Lung apices are normal. Soft tissues: Unremarkable. IMPRESSION: No acute findings. Dictated and Authenticated by: Ghulam Lugo MD. Orderin Hemalatha Deluna MD
[2024-04-03 05:22] LABS: COVID-19 PCR Negative (Negative); Influenza A PCR Negative (Negative); Influenza B PCR Negative (Negative); RSV PCR Negative (Negative)
[2024-04-03 05:24] LABS: Source Nasopharynx
[2024-04-03 06:18] LABS: HCT 36.4 % (36.0-46.0); HGB 12.5 g/dL (11.2-15.7); MCH 29.3 pg (27.0-33.0); MCHC 34.3 % (32.0-36.0); MCV 85 fL (80-95); MPV 9.5 fL (8.0-11.0); Platelet Count 331 10^3/uL (130-400); RBC 4.27 10^6/uL (3.93-5.22); RDW 12.7 % (11.7-14.6); RDW-SD 38.9 fL; WBC 9.47 10^3/uL (4.4-10.8)
[2024-04-03 06:35] LABS: ALT 45 U/L (14-59); AST 20 U/L (15-37); Albumin 4.1 g/dL (3.4-5.0); Alkaline Phosphatase 63 U/L (46-116); Anion Gap 7.2 mmol/L (3-11); BUN 11 mg/dL (7-18); Bilirubin, Total 0.53 mg/dL (0.2-1.0); CO2 28.8 mmol/L (21.0-32.0); CREATININE 0.7 mg/dL (0.55-1.02); Chloride 103 mmol/L (98-107); Estimated GFR 123.01 (mL/min/1.73m2); Glucose 123 mg/dL (74-106); Magnesium 2.2 mg/dL (1.8-2.4); Potassium 3.9 mmol/L (3.5-5.1); Sodium 139 mmol/L (136-145); Total Protein 7.4 g/dL (6.4-8.2)
[2024-04-03] MEDS: Metoprolol 25 MG TAB PO ×4 (06:53→20:09)
[2024-04-03] MEDS: Atorvastatin 40 MG TAB 80 MG PO ×2 (06:53→20:09)
[2024-04-03] MEDS: Aspirin 325 MG TAB PO (06:53)
[2024-04-03 07:10] LABS: Calculated LDL 35 mg/dL (<100); Cholesterol 137 mg/dL (<200); HDL Cholesterol 31 mg/dL (40-60); Triglyceride 358 mg/dL (<150)
[2024-04-03 07:54] LABS: Troponin I 7 ng/L (<or=51)
[2024-04-03 10:05] LABS: *AMPHETAMINES SCREEN URINE Negative (Negative); *BARBITURATES SCREEN URINE Negative (Negative); *BENZODIAZEPINES SCREEN URINE Negative (Negative); Cannabinoids THC Negative (Negative); Cocaine Screen,Urine Negative (Negative); METHADONE URINE SCREEN Negative (Negative); OPIATES URINE SCREEN Negative (Negative)
[2024-04-03 10:07] LABS: Tricyclic Antidepressants Negative (Negative)
--- NOTE | 2024-04-03 16:04 | W.PC.ACHO ---
Registration Status: Primary Language: Preferred Language: ED Information & Data Chief Complaint Dizzy/Sync 04/03/24 02:36 Other Complaint Chest Pain 04/03/24 01:38 Triage Note pt reports that 4 days ago 04/03/24 01:38 she was at work and BP was 178/135, took clonidine and Bp increased. Occurred several times over the last few days. Took it earlier this evening it was 208/145. then does not recall what happened but woke up on the kitchen floor. Unsure how long she was down for, unsure if head strike. having chest pains, SOB, feels dizzy. Denies N/V. Took nyquil at 10pm. Dad had heart attack at 30 and is in heart failure at 52. Medical / Surgical History (Last Reviewed 04/03/24 @ 04:00 by Mikie Penny) Anxiety and depression Morbid obesity Hypertriglyceridemia PCOS (polycystic ovarian syndrome) Substance abuse Most Recent Vital Signs Temperature 36.2 C L 04/03/24 01:38 Temperature Source Temporal Artery Scan 04/03/24 01:38 Pulse 83 04/03/24 16:00 Pulse 83 04/03/24 16:00 Respiratory Rate 20 04/03/24 16:00 Respiratory Effort Normal, Non-Labored 04/03/24 01:44 Respiratory Depth Normal 04/03/24 01:44 Respiratory Pattern Normal 04/03/24 01:44 Blood Pressure 155/96 H 04/03/24 16:00 Blood Pressure Mean 109 04/03/24 16:00 Blood Pressure Position Sitting 04/03/24 01:38 Pulse Oximetry 95 04/03/24 16:00 Oxygen Delivery Method Room Air 04/03/24 01:38 Oxygen Flow Rate 0 04/03/24 01:38 Pain Level 6 04/03/24 01:38 Allergies niacin Adverse Reaction (Intermediate, Verified 04/03/24 01:43) vomits trazodone Adverse Reaction (Intermediate, Verified 04/03/24 01:43) nausea and dizziness enviromental Allergy (Intermediate, Uncoded 04/03/24 01:43) seasonal - hayfever Precautions Isolation Standard precaution 04/03/24 01:44 Active Medications Generic Name Dose Route Start Last Admin Trade Name Freq PRN Reason Stop Dose Admin Heparin Sodium (Porcine) 5,000 units 04/03/24 04:15 04/03/24 12:16 Heparin 5,000 Units/Ml Vial SC 5,000 units Q8H DOMINICK Administration Metoprolol Tartrate 25 mg 04/03/24 12:00 04/03/24 12:16 Metoprolol 25 Mg Tab PO 25 mg Q6H DOMINICK Administration IV IV Catheter Type [Left Saline Lock Antecubital] IV Catheter Gauge [Left 20 Antecubital] Diagnostics 04/03/24 04/03/24 04/03/24 Range/Units 09:38 07:09 06:08 WBC 9.47 (4.4-10.8) 10^3/uL RBC 4.27 (3.93-5.22) 10^6/uL Hgb 12.5 (11.2-15.7) g/dL Hct 36.4 (36.0-46.0) % MCV 85 (80-95) fL MCH 29.3 (27.0-33.0) pg MCHC 34.3 (32.0-36.0) % RDW 12.7 (11.7-14.6) % Plt Count 331 (130-400) 10^3/uL MPV 9.5 (8.0-11.0) fL Immature Gran % % Neutrophils % % Lymphocytes % % Monocytes % % Eosinophils % % Basophils % % Nucleated RBC % (0.0-0.3) % Absolute Neutrophils (1.2-6.7) 10^3/uL Absolute Lymphocytes (1.2-3.4) 10^3/uL Absolute Monocytes (0.1-0.8) 10^3/uL Absolute Eosinophils (0.0-0.7) 10^3/uL Absolute Basophils (0.0-0.2) 10^3/uL D-Dimer (<500) ng/mlFEU VBG pH (7.31-7.41) VBG pCO2 (41-51) mmHg VBG pO2 mmHg VBG HCO3 (23-28) mmol/L VBG Total CO2 (24-29) mmol/L VBG O2 Saturation % VBG Base Excess (-2-3) mmol/L Sodium 139 (136-145) mmol/L Potassium 3.9 (3.5-5.1) mmol/L Chloride 103 (98-107) mmol/L Carbon Dioxide 28.8 (21.0-32.0) mmol/L Anion Gap 7.2 (3-11) mmol/L BUN 11 (7-18) mg/dL Creatinine 0.7 (0.55-1.02) mg/dL Est GFR (CKD-EPI 2020) 123.01 (mL/min/1.73m2) Glucose 123 H (74-106) mg/dL Calcium 9.0 (8.5-10.1) mg/dL Magnesium 2.2 (1.8-2.4) mg/dL Total Bilirubin 0.53 (0.2-1.0) mg/dL AST 20 (15-37) U/L ALT 45 (14-59) U/L Alkaline Phosphatase 63 (46-116) U/L Troponin I 7 (<or=51) ng/L NT-Pro-B Natriuret Pep (<300) pg/mL Total Protein 7.4 (6.4-8.2) g/dL Albumin 4.1 (3.4-5.0) g/dL Triglycerides 358 H (<150) mg/dL Total Cholesterol 137 (<200) mg/dL LDL Cholesterol, Calc 35 (<100) mg/dL HDL Cholesterol 31 L (40-60) mg/dL Serum HCG, Qual Urine Opiates Screen Negative (Negative) Urine Methadone Screen Negative (Negative) Ur Barbiturates Screen Negative (Negative) Ur Tricyclics Screen Negative (Negative) Ur Amphetamines Screen Negative (Negative) U Benzodiazepines Scrn Negative (Negative) Urine Cocaine Screen Negative (Negative) Ur THC Screen Negative (Negative) COVID-19 Source SARS-CoV-2 (PCR) (Negative) Influenza Type A (PCR) (Negative) Influenza Type B (PCR) (Negative) RSV (PCR) (Negative) 04/03/24 04/03/24 04/03/24 Range/Units 04:40 03:05 01:58 WBC 9.56 (4.4-10.8) 10^3/uL RBC 4.54 (3.93-5.22) 10^6/uL Hgb 13.3 (11.2-15.7) g/dL Hct 39.2 (36.0-46.0) % MCV 86 (80-95) fL MCH 29.3 (27.0-33.0) pg MCHC 33.9 (32.0-36.0) % RDW 12.7 (11.7-14.6) % Plt Count 324 (130-400) 10^3/uL MPV 9.3 (8.0-11.0) fL Immature Gran % 0.7 % Neutrophils % 58.1 % Lymphocytes % 31.4 % Monocytes % 7.4 % Eosinophils % 1.8 % Basophils % 0.6 % Nucleated RBC % 0.0 (0.0-0.3) % Absolute Neutrophils 5.55 (1.2-6.7) 10^3/uL Absolute Lymphocytes 3.00 (1.2-3.4) 10^3/uL Absolute Monocytes 0.71 (0.1-0.8) 10^3/uL Absolute Eosinophils 0.17 (0.0-0.7) 10^3/uL Absolute Basophils 0.06 (0.0-0.2) 10^3/uL D-Dimer 133 (<500) ng/mlFEU VBG pH 7.36 (7.31-7.41) VBG pCO2 50 (41-51) mmHg VBG pO2 40 mmHg VBG HCO3 28 (23-28) mmol/L VBG Total CO2 26 (24-29) mmol/L VBG O2 Saturation 73 % VBG Base Excess 3 (-2-3) mmol/L Sodium 140 (136-145) mmol/L Potassium 3.8 (3.5-5.1) mmol/L Chloride 101 (98-107) mmol/L Carbon Dioxide 30.3 (21.0-32.0) mmol/L Anion Gap 8.7 (3-11) mmol/L BUN 12 (7-18) mg/dL Creatinine 0.8 (0.55-1.02) mg/dL Est GFR (CKD-EPI 2020) 104.80 (mL/min/1.73m2) Glucose 136 H (74-106) mg/dL Calcium 9.1 (8.5-10.1) mg/dL Magnesium 1.6 L (1.8-2.4) mg/dL Total Bilirubin 0.51 (0.2-1.0) mg/dL AST 22 (15-37) U/L ALT 51 (14-59) U/L Alkaline Phosphatase 69 (46-116) U/L Troponin I 5 < 4 (<or=51) ng/L NT-Pro-B Natriuret Pep 51 (<300) pg/mL Total Protein 7.8 (6.4-8.2) g/dL Albumin 4.3 (3.4-5.0) g/dL Triglycerides (<150) mg/dL Total Cholesterol (<200) mg/dL LDL Cholesterol, Calc (<100) mg/dL HDL Cholesterol (40-60) mg/dL Serum HCG, Qual Negative Urine Opiates Screen (Negative) Urine Methadone Screen (Negative) Ur Barbiturates Screen (Negative) Ur Tricyclics Screen (Negative) Ur Amphetamines Screen (Negative) U Benzodiazepines Scrn (Negative) Urine Cocaine Screen (Negative) Ur THC Screen (Negative) COVID-19 Source Nasopharynx SARS-CoV-2 (PCR) Negative (Negative) Influenza Type A (PCR) Negative (Negative) Influenza Type B (PCR) Negative (Negative) RSV (PCR) Negative (Negative) Intake and Output - 24 Hour Total 04/03/24 01:35 thru 04/03/24 06:48 Intake Total 50 Balance 50 Weight 136.078 kg Intake: IV 50 Falls Risk Assessment History of Falls No History 04/03/24 01:44 Contributing Factors Unstable 04/03/24 01:44 Ambulatory Aids Independent 04/03/24 01:44 Tubes/Lines With any additional score 04/03/24 01:44 Gait Evaluation No gait disturbance 04/03/24 01:44 Cognition No cognitive impairment 04/03/24 01:44 Fall Total Score 23 04/03/24 01:44 Level of Risk Standard/Low Risk 04/03/24 01:44 Problems (Last Reviewed 04/03/24 @ 04:00 by Mikie Penny) Atypical chest pain (Acute) Hypomagnesemia (Acute) Syncope and collapse (Acute) Chest pain (Acute) Hypertension (Chronic) Loss of consciousness (Acute) v v v v v v v v v Sending and/or Receiving Nurses: Please use comment section below to note any information pertinent to the patient hand-off not included above. Information / Comments: A&O x4, independent, rings correctly, continent of B&B, able to make needs known, no known skin issues, 18G LAC, HTN x4 days, while increasing over the last couple of days, here for HTN management, family hx of MD on paternal side w/ heart failure. Awoke on kitchen floor unknown LOC time, unknown if patient hit head or not, Report received from: Miladys Oliver RN in ER at 1600
--- NOTE | 2024-04-03 16:37 | PDOC.CMIN ---
Date of service: 04/03/24 Time of Service: 16:37 Care Management Initial Assmt Initial Assessment Reason for Hospitalization: high BP, syncope Functional Status/Living Situation Patient Presentation: Kacie was lying in bed when CM met with her. She stated that she is not feeling well. She reported that she lives in [place] with her , Fadi, and their two cats. 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, and that she will need a return to work letter upon discharge. She is independent at baseline, and does not anticipate the need for additional services upon discharge. CM will continue to follow. Town of Residence: [place] Resides with: Spouse Natural Supports: , Fadi Employment Status: Employed Instrumental Activities of Daily Living (ADLs): Independent Medications Medication Management: No Issues/Barriers identified Advance Directives Advance Directives: Do you have an Advance Directive: N 11/16/22 13:37 AD On File at [facility]: N 11/16/22 13:37 Date Asked 04/03/24 04/03/24 01:59 AD Date Reviewed COLST On File at [facility] No 12/31/23 22:46 COLST Date Scanned Code Status Resuscitation Status Full Code Insurance Coverage/Financial Issues Insurance: / Care Team Visit Care Team Role Provider Type Tigist Vee NP Primary Care Provider NURSE PRACTITIONER Hellen Berrios MD Emergency Provider [facility] STAFF PHYSICIAN Mikie Penny Admit Provider NON-[facility] STAFF PHYSICIAN Attending Provider Discharge Potential Discharge Needs: PCP F/U Appt Anticipated Barriers to Discharge: None Identified Patient/Family Education Needs: Review discharge instructions, discuss Ask Me Three Transportation: Private vehicle Plan: Anticipate Kacie will return home once medically cleared. Her will drive her home via private vehicle when ready. She will follow up with her PCP and discharge plan of care. CM will continue to follow. Social Determinants of Health Screening Social Determinants of Health last assessed: 04/03/24 Will the Patient Participate in the Screening?: Yes Do you worry about having a steady place to live?: no Problems where you live: no known problems In the past 12 months, have you had to go without electric, gas, oil or water in your home?: no Have you or anyone in your house had to go without enough food to eat?: no Has lack of transportation kept you from medical appointments or from doing things needed for daily living?: no Has anyone in your life made you feel unsafe or unsupported?: no How hard is it for you to pay for the very basics like food, housing, medical care, and heating? Would you say it is:: Not hard at all Do you want help finding or keeping work or a job?: I do not need or want help If for any reason you need help with day-to-day activities such as bathing, preparing meals, shopping, managing finances, etc., do you get the help you need?: I don?t need any help How often do you feel lonely or isolated from those around you?: Never Do you speak a language other than [place] at home?: Yes Does the patient want assistance with any of the above?: No Health Related Social Needs Health related social needs: education (Z55.6) PFSH All Active Problems (Updated 04/03/24 @ 06:28 by Mikie Penny) Atypical chest pain (Acute) Hypomagnesemia (Acute) Syncope and collapse (Acute) Chest pain (Acute) Hypertension (Chronic) Loss of consciousness (Acute) Medical History Anxiety and depression Morbid obesity Hypertriglyceridemia PCOS (polycystic ovarian syndrome) 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 Family History Mother Anxiety Asthma Father Diabetes Hypertension Heart failure Paternal Grandmother Cancer lung Social History (Updated 04/03/24 @ 06:41 by Mikie Penny) Smoking/Tobacco Use Status: Current every day Tobacco Type: e-cigarettes Tobacco: How many years used: 5 Smokeless tobacco user: other Quit status: considering quitting Second Hand Exposure: Yes Smoking risk assessment performed?: Yes Alcohol Intake: former Substance use type: former substance user Date of last use: 2019. 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 [employer] Pets and animals: Yes Pets and animals: other Details: Aric Sexually active: Yes Do you think of yourself as: straight/heterosexual Current gender identity: female What is your relationship status?: How often do you talk on the phone with friends or family?: three or more times per week How often do you get together with friends or relatives?: three or more times per week Do you belong to any clubs or organized social groups?: no Panel score (0-1 are the most socially isolated patients): 2 NHANES result reviewed/action taken: No What type of physical activity do you participate in: walking and other Details: Enriqueta Duration: 30-45 minutes/day Frequency: 1-2 times per week Special shravan needs: No Seatbelt use: always Helmet use: Yes Helmet use: sometimes Drive 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
[2024-04-03] MEDS: Normal Saline Flush 10 ML SYR IVP ×2 (16:39→21:03)
[2024-04-03] MEDS: Acetaminophen 325 MG TAB PO (18:51)
[2024-04-04] MEDS: Heparin 5,000 UNITS/ML VIAL 5000 UNITS SC (03:35)
[2024-04-04 03:37] VITALS: BP 157/105; PULSE 98; RESP 17; TEMP 36.8; O2SAT 96
[2024-04-04] MEDS: Ibuprofen 600 MG TAB PO (03:40)
[2024-04-04] MEDS: Acetaminophen 325 MG TAB PO (06:41)
[2024-04-04 07:13] LABS: HGB 12.3 g/dL (11.2-15.7); MCH 28.1 pg (27.0-33.0); MCHC 32.4 % (32.0-36.0); MCV 87 fL (80-95); MPV 9.4 fL (8.0-11.0); Platelet Count 281 10^3/uL (130-400); RBC 4.37 10^6/uL (3.93-5.22); RDW 12.7 % (11.7-14.6); RDW-SD 40.3 fL; WBC 8.01 10^3/uL (4.4-10.8)
[2024-04-04 07:31] VITALS: BP 147/87; PULSE 85; RESP 16; TEMP 36.1; O2SAT 94
[2024-04-04 07:34] LABS: ALT 49 U/L (14-59); AST 27 U/L (15-37); Alkaline Phosphatase 56 U/L (46-116); Anion Gap 5.7 mmol/L (3-11); BUN 12 mg/dL (7-18); CO2 30.3 mmol/L (21.0-32.0); CREATININE 0.7 mg/dL (0.55-1.02); Calcium 8.9 mg/dL (8.5-10.1); Chloride 104 mmol/L (98-107); Estimated GFR 123.01 (mL/min/1.73m2); Glucose 113 mg/dL (74-106); Magnesium 1.6 mg/dL (1.8-2.4); Potassium 4.3 mmol/L (3.5-5.1); Sodium 140 mmol/L (136-145); Total Protein 7.3 g/dL (6.4-8.2)
[2024-04-04] MEDS: Normal Saline Flush 10 ML SYR IVP (07:54)
[2024-04-04] MEDS: Metoprolol 25 MG TAB PO (07:54)
--- NOTE | 2024-04-04 10:03 | DSE_ITS ---
Date of service: 04/04/24 Time of Service: 10:03 DS: Diagnosis Discharge Diagnosis (1) Syncope and collapse: Status: Resolved (2) Atypical chest pain: Status: Resolved (3) Hypomagnesemia: Status: Resolved (4) Hypertension: Status: Chronic (5) Morbid obesity: (6) Substance abuse: Discharge Plan Disposition Patient Disposition: Home Condition: Good Discharge Details Reason For Visit: Syncope, Atypical Chest Pain Admit Date/Time: 04/03/24 04:21 Admit Provider: Mikie Penny Attending Provider: Mikie Penny Primary Care Provider: Tigist Vee Hospital Course Hospital Course: Patient presented with signs and symptoms of a syncopal episode that may be secondary to hypertension. Her blood pressures were over 200 systolic but improved after initiation of metoprolol. Blood pressure is now improved with systolics in the 140s and 25 mg p.o. metoprolol twice daily. Additionally, she was found to have elevated cholesterol panel and was started on high-dose statin. Prolonged discussion was held with the patient regarding dietary changes she understands she needs to significantly cut back on her salt intake, intake of red meat, and overall caloric intake. Otherwise, given that the patient is significant proven of her blood pressures, did not have any acute findings on echocardiogram, or findings on telemetry was determined that she was stable for discharge home. Home Meds and New Rx's Prescriptions: New atorvastatin 40 mg Tablet 80 mg PO QPM Qty: 120 0RF metoprolol tartrate 25 mg Tablet 25 mg PO BID Qty: 120 0RF Continued clonidine HCl 0.1 mg tablet 0.1 mg PO DAILY PRN Patient Comments: TAKE 1 TABLET BY MOUTH EVERY DAY AT BEDTIME NEEDED FOR ANXIETY OR SLEEP Discharge Instructions Instructions: Syncope (fainting) Stand Alone Forms: Nursing Discharge Form Referrals: Tigist Vee NP [Primary Care Provider] - 04/17/24 11:45 am Activity:: Activity as Tolerated Equipment/Supplies:: No Equipment Needed Diet:: As Tolerated Discharge Orders Discharge Orders: Discharge Order (Routine); Ordered 04/04/24 Ordered By: Galileo Boyd Discharge Data Discharge Date/Time-TO BE ENTERED AT DEPARTURE: 04/04/24 10:55 DS: Summary Time Spent with Patient providing and/or coordinating discharge services: Greater than 30 minutes Status at Discharge Functional status at discharge: independent ambulation Overall status at discharge: patient is back to baseline Mental Status: mental status grossly normal Speech and Movement: speech and movement normal Mood: congruent mood Affect: normal affect Quality:SDOH Health Related Social Needs: Health related social needs education (Z55.6) Exam Narrative Exam Narrative: Well-appearing young female sitting up in chair no acute distress, no x 4, heart regular rhythm, auscultation bilaterally, abdomen soft, nontender, nondistended Psych Mental Status: mental status grossly normal Speech and Movement: speech and movement normal Mood: congruent mood Affect: normal affect DS: Data Vitals/I&O Vitals and I&O: Vital Signs Temperature 97.0 F L 04/04/24 07:31 Temperature Source Temporal Artery Scan 04/04/24 07:31 Pulse 85 04/04/24 07:31 Pulse Rhythm Regular 04/03/24 16:27 Pulse 83 04/03/24 16:00 Respiratory Rate 16 04/04/24 07:31 Respiratory Effort Normal 04/03/24 16:27 Respiratory Depth Normal 04/03/24 16:27 Respiratory Pattern Normal 04/03/24 16:27 Blood Pressure 147/87 H 04/04/24 07:31 Blood Pressure Mean 109 04/03/24 16:00 Blood Pressure Position Sitting 04/03/24 01:38 Pulse Oximetry 94 04/04/24 07:31 Oxygen Delivery Method Room Air 04/04/24 07:31 Oxygen Flow Rate 0 04/04/24 07:31 Pain Level 0 04/04/24 07:31 Intake & Output 04/03/24 04/04/24 04/04/24 17:59 05:59 17:59 Intake Total 50 / 50 810 / 860 Balance 50 / 50 810 / 860 Weight 300 lb 0.01 oz 281 lb 15.539 oz Intake: IV 50 / 50 10 / 60 Oral 800 / 800 Other: Urine Color Yellow Urine Odor Normal Comment unmeasurable Data Completed and Pending Labs on day of discharge: Labs from last 24 hours 04/04/24 04/03/24 06:31 09:38 WBC 8.01 RBC 4.37 Hgb 12.3 Hct 38.0 MCV 87 MCH 28.1 MCHC 32.4 RDW 12.7 Plt Count 281 MPV 9.4 Sodium 140 Potassium 4.3 Chloride 104 Carbon Dioxide 30.3 Anion Gap 5.7 BUN 12 Creatinine 0.7 Est GFR (CKD-EPI 2020) 123.01 Glucose 113 H Calcium 8.9 Magnesium 1.6 L Total Bilirubin 0.90 AST 27 ALT 49 Alkaline Phosphatase 56 Total Protein 7.3 Albumin 4.0 Urine Opiates Screen Negative Urine Methadone Screen Negative Ur Barbiturates Screen Negative Ur Tricyclics Screen Negative Ur Amphetamines Screen Negative U Benzodiazepines Scrn Negative Urine Cocaine Screen Negative Ur THC Screen Negative PFSH All Active Problems (Updated 04/05/24 @ 00:04 by ALBAN BRAMBILA) Hypertension (Chronic) Medical History (Updated 04/05/24 @ 00:04 by ALBAN BRAMBILA) H/O echocardiogram 04/03/24[facility] Anxiety and depression Morbid obesity Hypertriglyceridemia PCOS (polycystic ovarian syndrome) 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 Family History Mother Anxiety Asthma Father Diabetes Hypertension Heart failure Paternal Grandmother Cancer lung Social History (Updated 04/03/24 @ 06:41 by Mikie Penny) Smoking/Tobacco Use Status: Current every day Tobacco Type: e-cigarettes Tobacco: How many years used: 5 Smokeless tobacco user: other Quit status: considering quitting Second Hand Exposure: Yes Smoking risk assessment performed?: Yes Alcohol Intake: former Substance use type: former substance user Date of last use: 2019. 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 [employer] Pets and animals: Yes Pets and animals: other Details: Bunny Sexually active: Yes Do you think of yourself as: straight/heterosexual Current gender identity: female What is your relationship status?: How often do you talk on the phone with friends or family?: three or more times per week How often do you get together with friends or relatives?: three or more times per week Do you belong to any clubs or organized social groups?: no Panel score (0-1 are the most socially isolated patients): 2 NHANES result reviewed/action taken: No What type of physical activity do you participate in: walking and other Details: Enriqueta Duration: 30-45 minutes/day Frequency: 1-2 times per week Special shravan needs: No Seatbelt use: always Helmet use: Yes Helmet use: sometimes Drive intox or ride w/intox 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
--- NOTE | 2024-04-04 10:06 | W.NUTRFU ---
Date of service: 04/04/24 Nutrition Note NOTE: Current BMI consistent with class III obesity. Weight with some down trend over the last 2 years - 131kg to 127kg. Lives in apartment current tobacco use- vape Total protein and albumin wnl yesterday. Recommend A1C lab with elevated glucose over 126 fasting yesterday and +family hx of father, who lives with diabetes.
--- NOTE | 2024-04-04 12:23 | PDOC.CMDIS ---
Date of service: 04/04/24 Time of Service: 12:23 LACE Index Scoring Tool Questions: Length of Stay (in days): 1 Was the patient admitted via the E.D.?: Yes E.D. Visits: 2 Answers: Total Score: 6 Risk of Readmission: Low Risk Care Management Discharge Plan Reason for Hospitalization: hypertension with syncope Discharge Plan: Kacie will return home with no new services. Her will drive her home via private vehicle and she will follow up with her PCP and discharge plan of care. Patient/Family Education Needs: Review discharge instructions, discuss Ask Me Three SDVT Health Related Social Needs: Health related social needs education (Z55.6)
== END 2024-04-04 10:55 | disposition home or self-care (01) ==
LOC: ER 04:21 → EDHOLD 04:22 → MS 16:20
PROVIDERS: Admitting Provider Family Medicine; Emergency Provider Student in an Organized Health Care Education/Training Program; PCP Nurse Practitioner; Visit Provider Family Medicine
DX: R55 Syncope and collapse (principal); R07.89 Other chest pain; E66.01 Morbid (severe) obesity due to excess calories; I10 Essential (primary) hypertension; F41.8 Other specified anxiety disorders; Z68.42 Body mass index [BMI] 45.0-49.9, adult; Z79.899 Other long term (current) drug therapy; Z82.49 Family history of ischemic heart disease and other diseases of the circulatory system; E28.2 Polycystic ovarian syndrome; E78.1 Pure hyperglyceridemia; F17.290 Nicotine dependence, other tobacco product, uncomplicated; F19.11 Other psychoactive substance abuse, in remission
CPT/HCPCS: 00123; 36415; 80053; 80061; 80307; 82805; 85027; 87637; 93005; 96365; 96366; 96372; 99285; 70450; 70490; 71046; 83735; 83880; 84484; 84703; 85025; 85379; 93010; 93306; 99223; 99239; G0378; J1644; J3475

== ENCOUNTER 2024-04-10 13:51 | Outpatient (CLI) | payer BC, SELFPAY ==
[2024-04-10 13:26] LABS: Calculated LDL 34 mg/dL (<100); Cholesterol 107 mg/dL (<200); HDL Cholesterol 32 mg/dL (40-60); Triglyceride 208 mg/dL (<150)
== END 2024-04-10 13:52 | disposition home or self-care (01) ==
LOC: LBO 13:51
PROVIDERS: PCP Nurse Practitioner; Visit Provider Nurse Practitioner Family
DX: E78.1 Pure hyperglyceridemia (principal)
CPT/HCPCS: 36415; 80061

== ENCOUNTER 2024-10-05 04:38 | Outpatient (CLI) | payer BC, SELFPAY ==
[2024-10-05 13:23] LABS: Calculated LDL 77 mg/dL (<100); Cholesterol 146 mg/dL (<200); HDL Cholesterol 36 mg/dL (>or=50); TSH (W/Ref FT4) 0.86 uIU/mL (0.36-3.74); Triglyceride 168 mg/dL (<150)
== END 2024-10-05 04:39 | disposition home or self-care (01) ==
LOC: LBO 04:38
PROVIDERS: PCP Nurse Practitioner; Visit Provider Nurse Practitioner Family
DX: Z00.00 Encounter for general adult medical examination without abnormal findings (principal); E66.813 Obesity, class 3; Z68.41 Body mass index [BMI] 40.0-44.9, adult
CPT/HCPCS: 36415; 80061; 84443

== ENCOUNTER 2024-11-13 12:43 | Outpatient (REF) | payer BC, SELFPAY ==
--- NOTE | 2024-11-13 11:10 | PAPFT_PTH ---
PATIENT: Kacie Luke LOC: [facility] U#:[id number] AGE/SX: 24/F ROOM: RE11/13/[address]: Sofy Avitia MD : 2000 BED: DIS: 11/13/2024 SPEC #: [id number] RECD: 11/13/24 13:11 STATUS: ISABEL MCKINNON #: [id number] JONEL: 11/13/24 11:[address]: Sofy Avitia DEPT: [facility] Cytology RECD BY: Christiane Keita ENTERED: 11/13/24 13:11 SP TYPE: PAPFT OTHR DR: Avani Salvador APRN Tissues: 1 - CX/ENDOCX FOR PAP SMEARS Procedures: PAP THIN PREP/[facility] Screening Comments: [id number] (CHLAMYDIA/GC)
== END 2024-11-13 12:44 | disposition home or self-care (01) ==
LOC: LBN 12:43
PROVIDERS: PCP Nurse Practitioner Family; Visit Provider Obstetrics & Gynecology
DX: N89.8 Other specified noninflammatory disorders of vagina (principal); Z12.4 Encounter for screening for malignant neoplasm of cervix
CPT/HCPCS: 88142; 87480; 87510; 87660

== ENCOUNTER 2024-11-13 17:02 | Outpatient (CLI) | payer BC, SELFPAY ==
[2024-11-13 12:08] LABS: Abs Immature Grans 0.05 10^3/uL (0.0-0.06); HCT 41.8 % (36.0-46.0); HGB 13.7 g/dL (11.2-15.7); Immature Grans % 0.5 %; MCH 27.8 pg (27.0-33.0); MCHC 32.8 % (32.0-36.0); MCV 85 fL (80-95); MPV 9.4 fL (8.0-11.0); Platelet Count 346 10^3/uL (130-400); RBC 4.93 10^6/uL (3.93-5.22); RDW 12.6 % (11.7-14.6); RDW-SD 38.5 fL; WBC 9.23 10^3/uL (4.4-10.8)
[2024-11-13 13:20] LABS: TSH (W/Ref FT4) 0.82 uIU/mL (0.36-3.74)
[2024-11-13 13:22] LABS: HCG Quant, Pregnancy < 1 mIU/mL (1-3)
[2024-11-14 10:57] LABS: Syphilis Serology (RPR) Negative (Negative)
[2024-11-14 11:16] LABS: HIV-1/2 Ag & Ab Screen Negative (Negative)
[2024-11-14 11:32] LABS: HBs Antibody, Qual Negative (See Note); HBs Antibody, Quant 3.3 mIU/mL (See Note); Hepatitis C Ab w Rflx HCV PCR Negative (Negative)
== END 2024-11-13 17:03 | disposition home or self-care (01) ==
LOC: LBO 17:03
PROVIDERS: PCP Nurse Practitioner Family; Visit Provider Obstetrics & Gynecology
DX: N92.0 Excessive and frequent menstruation with regular cycle (principal); Z11.3 Encounter for screening for infections with a predominantly sexual mode of transmission; N92.6 Irregular menstruation, unspecified
CPT/HCPCS: 36415; 86704; 86706; 86803; 87340; 87389; 87491; 87591; 84443; 84702; 85025; 86592